=== PATIENT | female | born 1980 | race Caucasian/White ===

== ENCOUNTER → 2017-08-19 | Outpatient (CLI) | payer MEDICAID | LOC: HPND 08:38 | PROVIDERS: ATTEND Obstetrics & Gynecology | DX: O09.523 Supervision of elderly multigravida, third trimester (principal); O09.33 Supervision of pregnancy with insufficient antenatal care, third trimester | CPT/HCPCS: 76811 ==

== ENCOUNTER 2017-10-13 12:12 | Inpatient (IN) ==
[~2017-10-13 12:12] MED LIST: Phenylephrine/NS 1000 MCG/10ML Syringe IV.PUSH ONE
[2017-10-13] MEDS ORDERED: ceFAZolin Inj 2,000 MG in Sodium Chlor 0.9% Inj 80 ML IV.SIG SCH (13:00)
[2017-10-13] MEDS ORDERED: Citric Acid/Sodium Citrate Liq 30 ML UDC PO SCH (13:00)
[2017-10-13 13:24] LABS: Baso # (Auto) 0.1 th/mm3 (0.0-0.2); Baso % (Auto) 0.5 % (0.0-2.0); Eos # (Auto) 0.1 th/mm3 (0.0-0.4); Eos % (Auto) 0.7 % (0.0-4.0); Hematocrit 41.4 % (35.0-46.0); Hemoglobin 13.6 gm/dL (11.6-15.3); Lymph # (Auto) 2.8 th/mm3 (1.0-4.8); Mean Corpuscular HGB Conc 32.8 % (32.0-36.0); Mean Corpuscular Hemoglobin 29.6 pg (27.0-34.0); Mean Corpuscular Volume 90.3 fL (80.0-100.0); Mean Platelet Volume 10.7 fL (7.0-11.0); Mono # (Auto) 0.7 th/mm3 (0.0-0.9); Mono % (Auto) 5.3 % (0.0-8.0); Neut # (Auto) 9.8 th/mm3 (1.8-7.7); Neut % (Auto) 72.5 % (16.0-70.0); Platelet Count 278 th/mm3 (150-450); Red Blood Count 4.58 mil/mm3 (4.00-5.30); Red Cell Distribution Width 13.2 % (11.6-17.2); White Blood Count 13.6 th/mm3 (4.0-11.0)
[2017-10-13 13:28] LABS: Bilirubin,Urine Negative (Negative); Clarity,Urine Clear (Clear); Color,Urine Yellow (Yellw/Straw); Glucose,Urine (UA) Negative (Negative); Leukocyte Esterase,Urine Negative (Negative); Mucus,Urine Few /lpf (Occasional); Nitrite,Urine Negative (Negative); Specific Gravity,Urine 1.017 (1.002-1.035); Squamous Epithelial Cell,Urine 2 /hpf (0-5)
[2017-10-13 13:44] LABS: Barbiturate Screen,Urine Neg (Neg)
--- NOTE | 2017-10-13 13:54 | P.HPOB ---
History of Present Illness Primary Care Physician: UNKNOWN Chief Complaint: scheduled History of Present Illness: 36-year-old at 39 weeks and 2 days by ultrasound presents for scheduled C- section. Denies any loss of fluid, vaginal bleeding, decreased movements. Is having some contractions. During was diagnosed with gestational diabetes. Not on any medications besides vitamins. Otherwise uncomplicated. Previous uncomplicated besides gestational diabetes. First required induction of labor for postdates but went to due to failure of progression. Para: 1 : 2 - Inpatient Certification I certify that the inpatient services were ordered in accordance with Medicare regulations governing the order. This includes certification that hospital inpatient services are reasonable and necessary and in the case of services not specified as inpatient-only under 42 CFR 419.22(n), that they are appropriately provided as inpatient services in accordance to with the 2-midnight benchmark under 43 CFR 412.3(e) Estimated Total Length of Stay (Days): 4 Plans for Post Hospital Care: Home Review of Systems Constitutional: Denies chills, Denies fever(s) Cardiovascular: Denies chest pain Respiratory: Denies shortness of breath Gastrointestinal: Denies abdominal pain, Denies vomiting Genitourinary: Denies painful urination, Denies urinary incontinence Neurologic: Denies headache(s), Denies other visual disturbances PMFSH - Medical / Surgical Hx Neg / Unobtainable Medical Problems Denied: Yes Surgical History: No Previous Surgery - Medical History Medical History: Medical History (Last Updated 10/13/17 @ 13:48 by Yaneli Zeng MD, R1) delivery delivered - Tobacco History Smoking Status: Never smoker - Alcohol History How Often Do You Have a Drink Containing Alcohol: Never - Substance Use History Substance History: No History of Abuse Medications and Allergies Active Medications: Active Medications Citric Acid/Sodium Citrate (Sodium Citrate/Citric Acid Liq) 30 ml PO NURSE TRANSPLANT EVELYNE Stop: 10/17/17 12:59 Cefazolin Sodium 2,000 mg/ (Sodium Chloride) 100 mls @ 200 mls/hr IV.SIG NURSE TRANSPLANT EVELYNE Stop: 10/17/17 12:59 Lactated Ringer's (Lr 1000 Ml Inj) 1,000 mls @ 150 mls/hr IV.CONT .Q6H40M [facility] Allergies Allergy/AdvReac Type Severity Reaction Status Date / Time No Known Allergies Allergy Verified 10/13/17 12:57 Home Medications Medication Instructions Recorded Confirmed Type PNV #[id number] 1 tab PO DAILY 10/13/17 History Exam Vital signs: Vital Signs 10/13/17 12:53 10/13/17 12:55 Temperature 98.0 F Pulse Rate 71 Respiratory Rate 18 Blood Pressure 110/72 Intake & Output 10/12/17 10/13/17 10/13/17 18:59 06:59 18:59 Weight 99.79 kg Narrative: GENERAL: Well-nourished, well-developed patient. SKIN: Warm and dry. HEAD: Normocephalic and atraumatic. EYES: No scleral icterus. No injection or drainage. ENT: No nasal drainage noted. Mucous membranes pink. Airway patent. NECK: Supple, trachea midline. No JVD. CARDIOVASCULAR: Regular rate and rhythm without murmurs, gallops, or rubs. RESPIRATORY: Breath sounds equal bilaterally. No accessory muscle use. BREASTS: Bilateral exam showed no masses , no retractions, no nipple discharge. ABDOMEN/GI: Abdomen soft, non-tender, bowel sounds present, no rebound, no guarding GENITOURINARY: Uterine Contractions: every 5-6 minutes FHT's: Category: 1 Baseline: 135 Reactive: yes Variability: moderate Decels: none EXTREMITIES: No cyanosis or edema. BACK: Nontender without obvious deformity. No CVA tenderness. NEUROLOGICAL: Awake and alert. Motor and sensory grossly within normal limits. Five out of 5 muscle strength in all muscle groups. Normal speech. Results - Labs CBC & Chem 7: 10/13/17 12:40 Labs: Laboratory Results - last 24 hr 10/13/17 10/13/17 10/13/17 12:40 12:40 12:40 WBC 13.6 H RBC 4.58 Hgb 13.6 Hct 41.4 MCV 90.3 MCH 29.6 MCHC 32.8 RDW 13.2 Plt Count 278 MPV 10.7 Neut % (Auto) 72.5 H Lymph % (Auto) 21.0 [place] % (Auto) 5.3 Eos % (Auto) 0.7 Baso % (Auto) 0.5 Neut # (Auto) 9.8 H Lymph # (Auto) 2.8 [place] # (Auto) 0.7 Eos # (Auto) 0.1 Baso # (Auto) 0.1 WBC Differential . Differential Comment Auto diff final Urine Color Yellow Urine Clarity Clear Urine pH 5.0 Ur Specific [place] 1.017 Urine Protein Negative Urine Glucose (UA) Negative Urine Ketones 20 Urine Occult Blood Negative Urine Nitrate Negative Urine Bilirubin Negative Urine Urobilinogen Less than 2 Ur Leukocyte Esterase Negative Urine RBC Less than 1 Urine WBC 1 Ur Squamous Epith Cells 2 Urine Mucus Few H Micro UA Comment Culture not ind Urine Culture Comments Culture not ind Blood Type A Positive Blood Type Recheck Required Caprini VTE Risk Assessment Caprini VTE Risk Assessment: No/Low Risk (score <= 1) Caprini Risk Assessment Model: Point Value = 1 Point Value = 2 Point Value = 3 Point Value = 5 Age 41-60 Minor surgery BMI > 25 kg/m2 Swollen legs Varicose veins or History of unexplained or recurrent spontaneous Oral contraceptives or hormone replacement Sepsis (< 1 month) Serious lung disease, including pneumonia (< 1 month) Abnormal pulmonary function Acute myocardial infarction Congestive heart failure (< 1 month) History of inflammatory bowel disease Medical patient at bed rest Age 61-74 Arthroscopic surgery Major open surgery (> 45 min) Laparoscopic surgery (> 45 min) Malignancy Confined to bed (> 72 hours) Immobilizing plaster cast Central venous access Age >= 75 History of VTE Family history of VTE Factor V Leiden Prothrombin [id number] Lupus anticoagulant Anticardiolipin antibodies Elevated serum homocysteine Heparin-induced thrombocytopenia Other congenital or acquired thrombophilia Stroke (< 1 month) Elective arthroplasty Hip, pelvis, or leg fracture Acute spinal cord injury (< 1 month) Prophylaxis Regimen: Total Risk Factor Score Risk Level Prophylaxis Regimen 0-1 Low Early ambulation 2 Moderate Order ONE of the following: *Sequential Compression Device (SCD) *Heparin 5000 units SQ BID 3-4 Higher Order ONE of the following medications: *Heparin 5000 units SQ TID *Enoxaparin/Lovenox 40 mg SQ daily (WT < 150 kg, CrCl > 30 mL/min) *Enoxaparin/Lovenox 30 mg SQ daily (WT < 150 kg, CrCl > 10-29 mL/min) *Enoxaparin/Lovenox 30 mg SQ BID (WT < 150 kg, CrCl > 30 mL/min) AND/OR *Sequential Compression Device (SCD) 5 or more Highest Order ONE of the following medications: *Heparin 5000 units SQ TID (Preferred with Epidurals) *Enoxaparin/Lovenox 40 mg SQ daily (WT < 150 kg, CrCl > 30 mL/min) *Enoxaparin/Lovenox 30 mg SQ daily (WT < 150 kg, CrCl > 10-29 mL/min) *Enoxaparin/Lovenox 30 mg SQ BID (WT < 150 kg, CrCl > 30 mL/min) AND *Sequential Compression Device (SCD) Assessment and Plan - Diagnosis (1) with 39 completed weeks gestation Code(s): Z3A.39 - 39 weeks gestation of Status: Acute Plan: 36-year-old female at 39 weeks and 2 days presents for scheduled repeat C- section. Not in active labor. -FHT category 1 reassuring contractions 6 min apart -Admit to labor and delivery -Routine orders -Recommend follow-up on gestational diabetes after discharge
[2017-10-13 13:56] LABS: Amphetamine Screen,Urine Neg (Neg); Cannabinoid Screen,Urine Neg (Neg); Cocaine Screen,Urine Neg (Neg)
[2017-10-13 13:57] LABS: Opiate Screen,Urine Neg (Neg)
[2017-10-13 15:09] LABS: Alanine Aminotransferase 140 U/L (10-53); Albumin 2.8 g/dL (3.4-5.0); Anion Gap 13 meq/L (5-15); Aspartate Aminotransferase 67 U/L (15-37); Blood Urea Nitrogen 11 mg/dL (7-18); Calcium 9.1 mg/dL (8.5-10.1); Carbon Dioxide 20.1 meq/L (21.0-32.0); Chloride 105 meq/L (98-107); Glomerular Filtration Rate 70 mL/min (>89); Glucose,Random 82 mg/dL (74-106); Potassium 3.8 meq/L (3.5-5.1); Sodium 138 meq/L (136-145)
[2017-10-13 15:12] LABS: Alkaline Phosphatase 179 U/L (45-117); Total Protein 6.8 g/dL (6.4-8.2)
[2017-10-13] MEDS ORDERED: Morphine Sulfate PF Inj 5 MG/10 ML Ampul ONE (15:32)
[2017-10-13] MEDS ORDERED: Naloxone Inj 0.4 MG/ML Vial IV.PUSH PRN (15:35)
[2017-10-13] MEDS ORDERED: fentaNYL Citrate Inj 100 MCG/2 ML Ampul ONE (16:19)
[2017-10-13] MEDS ORDERED: Acetaminophen 325 MG Tablet PO PRN (17:36)
--- NOTE | 2017-10-13 17:48 | P.OP ---
- Preoperative Diagnosis (1) Previous section complicating , with delivery - Postoperative Diagnosis (1) Previous section complicating (2) Previous section complicating , with delivery Date of procedure: 10/13/17 Procedure: Repeat section low transverse Anesthesia: spinal Surgeon: Ken Kuo MD Estimated blood loss (mL): 500 IV fluids (mL): 1,000 Urine output (mL): 100 Operation and Findings: Patient was taken the operating room and placed in supine position after adequate spinal anesthesia administered. A previous Pfannenstiel incision was excised. The incision carried to the fascia sharply and the fascia incised laterally and reflected off the rectus muscle. The peritoneal cavity entered sharply at that time. The incision extended superior and inferiorly. The bladder blade placed large incision. The visceral peritoneum reflected off the lower uterine segment placed on a bladder blade. A transverse hysterotomy was made extended bluntly bilaterally clear fluid noted. Baby was delivered at 4: 04 PM's female weight 3570 g Apgars 8 8 were no complications delivery delayed cord clamping done. Cord blood obtained. The uterus elevated and the placenta manually extracted. The uterus exteriorized. The cervix dilated and the hysterotomy closed running layer of 0 chromic followed by imbricating layer of same. Hemostasis achieved the uterus is elevated blood suctioned site gutters and the uterus replaced the peritoneal cavity. The ovaries and tubes noted to be normal. The parietal peritoneum closed in a running layer 2-0 Vicryl. muscle reapproximated with stick ties of chromic and Vicryl. And the fascia closed in a running layer of 0 Vicryl. Subcutaneous tissues brought together with 3-0 plain catgut suture and the skin closed with a subcuticular 3- 0 Monocryl suture. Pressure dressing applied. The estimated blood loss was 500 cc sponge and needle count correct 2 and the patient to recovery in stable condition
[2017-10-13] MEDS ORDERED: Oxytocin 30 Units/500ml Premix 30 UNITS/500 ML BAG ONE (17:53)
[2017-10-13] MEDS ORDERED: Oxytocin 30 Units/500ml Premix 30 UNITS/500 ML BAG IV.SIG ONE (18:00)
[2017-10-13] MEDS ORDERED: Oxytocin 30 Units/500ml Premix 30 UNITS/500 ML BAG IV.SIG PRN (22:36)
[2017-10-14 05:53] LABS: Baso % (Auto) 0.1 % (0.0-2.0); Hematocrit 34.3 % (35.0-46.0); Hemoglobin 11.7 gm/dL (11.6-15.3); Lymph % (Auto) 9.5 % (9.0-44.0); Mean Corpuscular HGB Conc 34.1 % (32.0-36.0); Mean Corpuscular Hemoglobin 30.3 pg (27.0-34.0); Mean Corpuscular Volume 88.8 fL (80.0-100.0); Mean Platelet Volume 10.5 fL (7.0-11.0); Mono # (Auto) 1.8 th/mm3 (0.0-0.9); Mono % (Auto) 8.2 % (0.0-8.0); Neut # (Auto) 17.6 th/mm3 (1.8-7.7); Neut % (Auto) 82.2 % (16.0-70.0); Platelet Count 231 th/mm3 (150-450); Red Blood Count 3.87 mil/mm3 (4.00-5.30); Red Cell Distribution Width 12.9 % (11.6-17.2); White Blood Count 21.4 th/mm3 (4.0-11.0)
--- NOTE | 2017-10-14 08:19 | P.PNOB ---
Subjective Post op day: 1 Interval history: Patient is a 36 year-old delivered at 39 weeks and 2 days. Patient is day 1 after . Patient's pain is well-controlled. Patient reports eating and drinking without any nausea or vomiting. Had some vomiting yesterday afternoon that resolved. Patient reports minimal bleeding. Patient has passed not passed gas and no bowel movements. Patient is walking without lower extremity pain or shortness of breath. Patient reports desire for contraception and breast-feeding. Objective Vital Signs/I&O: Vital Signs 10/13/17 12:53 10/13/17 12:55 10/13/17 14:30 Temperature 98.0 F Pulse Rate 71 Respiratory Rate 18 17 Blood Pressure 110/72 10/13/17 16:50 10/13/17 16:58 10/13/17 17:05 Temperature 98.0 F Pulse Rate 19 L 66 Respiratory Rate 18 17 Blood Pressure 96/56 L 99/59 L 10/13/17 17:12 10/13/17 17:17 10/13/17 17:27 Temperature Pulse Rate 71 67 Respiratory Rate 18 17 Blood Pressure 105/57 L 10/13/17 17:35 10/13/17 17:45 10/13/17 17:46 Temperature 98.2 F Pulse Rate 68 Respiratory Rate 18 Blood Pressure 112/66 112/65 10/13/17 18:30 10/13/17 20:00 10/14/17 00:00 Temperature 97.5 F L 97.7 F 98.3 F Pulse Rate 68 74 67 Respiratory Rate 18 16 18 Blood Pressure 128/69 127/65 102/63 10/14/17 04:00 Temperature 98.1 F Pulse Rate 64 Respiratory Rate 18 Blood Pressure 116/68 Intake & Output 10/13/17 10/14/17 10/14/17 18:59 06:59 18:59 Intake Total 100 / 100 Balance 100 / 100 Weight 99.79 kg Intake: IV 100 / 100 Ofirmev Inj 1,000 mg In 100 ml 100 / 100 @ 400 mls/hr IV.SIG Q8H [facility] Rx# :[id number] Result Diagrams: 10/14/17 04:56 10/13/17 12:40 Objective Remarks: GENERAL: Well-nourished, well-developed patient. CARDIOVASCULAR: Regular rate and rhythm without murmurs, gallops, or rubs. RESPIRATORY: Breath sounds equal bilaterally. No accessory muscle use. ABDOMEN/GI: Abdomen soft, non-tender, bowel sounds present. Incision: Clean, dry bandage Fundus: Firm, non-tender at umbilicus. GENITOURINARY: Light to moderate bleeding. EXTREMITIES: No cyanosis or edema, non-tender, without signs of DVT. 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 [facility] Stop: 10/17/17 12:59 Last Admin: 10/13/17 15:26 Dose: 30 ml Diphenhydramine HCl (Benadryl) 50 mg PO Q6H PRN PRN Reason: MILD TO MODERATE ITCHING Stop: 10/14/17 15:34 Diphenhydramine HCl (Benadryl Inj) 25 mg IV.PUSH Q6H PRN PRN Reason: MILD TO MODERATE ITCHING Stop: 10/14/17 15:34 Diphtheria/Pertussis/Tetanus Vacc (Boostrix Vaccine Inj) 0.5 ml IM .ONCE ONE Stop: 10/14/17 16:01 Oxytocin (Pitocin 30 Units/Ns 500 Ml Premix) 30 units in 500 mls @ 100 mls/hr IV.SIG PRN PRN PRN Reason: Heavy bleeding Stop: 10/14/17 22:35 Cefazolin Sodium 2,000 mg/ (Sodium Chloride) 100 mls @ 200 mls/hr IV.SIG Q8H EVELYNE Stop: 10/14/17 08:29 Last Admin: 10/13/17 23:52 Dose: 200 mls/hr Lactated Ringer's (Lr 1000 Ml Inj) 1,000 mls @ 100 mls/hr IV.CONT .Q10H [facility] Stop: 10/14/17 18:35 Ibuprofen (Motrin) 600 mg PO Q6H PRN PRN Reason: cramping Ketorolac Tromethamine (Toradol Inj) 60 mg IM ONCE PRN PRN Reason: SEE LABEL COMMENTS Stop: 10/14/17 17:35 Ketorolac Tromethamine (Toradol Inj) 30 mg IM Q6H PRN PRN Reason: SEE LABEL COMMENTS Stop: 10/15/17 17:35 Measles/Mumps/Rubella Vaccine Live (M-M-R Ii Vaccine Inj) 0.5 ml SQ .ONCE ONE Stop: 10/14/17 16:01 Miscellaneous Information ([facility] [place] [facility] Information) 1 each OTHER UNSCH PRN PRN Reason: SEE LABEL COMMENTS Stop: 10/14/17 15:34 Miscellaneous Information ([facility] [place] [facility] Information) 1 each OTHER UNSCH PRN PRN Reason: SEE LABEL COMMENTS Stop: 10/14/17 15:34 Naloxone HCl (Narcan Inj) 0.4 mg IV.PUSH UNSCH PRN PRN Reason: SEE LABEL COMMENTS Stop: 10/14/17 15:34 Ondansetron HCl (Zofran Inj) 4 mg IV.PUSH Q6H PRN PRN Reason: NAUSEA OR VOMITING Last Admin: 10/13/17 20:40 Dose: 4 mg Oxycodone/Acetaminophen (Percocet 5/325 Mg) 2 tab PO Q4H PRN PRN Reason: PAIN SCALE 6 TO 10 Oxycodone/Acetaminophen (Percocet 5/325 Mg) 1 tab PO Q4H PRN PRN Reason: PAIN SCALE 3 TO 5 Sodium Chloride (Ns Flush) 2 ml IV.FLUSH UNSCH PRN PRN Reason: FLUSH AFTER USING IV ACCESS Sodium Chloride (Ns Flush) 2 ml IV.FLUSH BID EVELYNE Assessment and Plan - Diagnosis (1) delivery delivered Code(s): O82 - Encounter for delivery without indication Status: Acute Plan: Patient is a 36 year-old delivered at 39 weeks and 2 days. Patient is day 1 after . Patient was counseled to do 6 weeks of pelvic rest. Patient was counseled to follow up in 6 weeks. Not interested in contraception at this time. --AF VSS --Continue routine care --Motrin and Percocet when necessary for pain --Encourage OOB --Pelvic rest for 6 weeks will need follow-up appointment at that time. --Anticipate discharge in two days.
[2017-10-14] MEDS ORDERED: ceFAZolin Inj 2,000 MG in Sodium Chlor 0.9% Inj 80 ML IV.SIG SCH ×3 (10:00)
[2017-10-14] MEDS: Ibuprofen 600 MG Tablet PO PRN ×2 (15:21→21:32)
[2017-10-14] MEDS ORDERED: Diphtheria/Tetanus/Pertussis Vaccine Inj 0.5 ML Syringe IM ONE (16:00)
[2017-10-14] MEDS ORDERED: Measles/Mumps/Rubella Vaccine Inj 0.5 ML Vial SQ ONE (16:00)
[2017-10-14 17:46] VITALS: O2SAT 96
--- NOTE | 2017-10-15 08:23 | P.PNOB ---
Subjective Post op day: 2 Interval history: Patient is a 36 year-old delivered at 39 weeks and 2 days. Patient is day 1 after . Patient's pain is well-controlled. Patient reports eating and drinking without any nausea or vomiting. Had some vomiting yesterday afternoon that resolved. Patient reports minimal bleeding. Patient has passed not passed gas and no bowel movements. Patient is walking without lower extremity pain or shortness of breath. Patient reports breast-feeding, and not interested in contraception. Objective Vital Signs/I&O: Vital Signs 10/14/17 11:39 10/14/17 16:00 10/14/17 20:00 Temperature 98.4 F 97.7 F 98.1 F Pulse Rate 72 78 65 Respiratory Rate 18 18 20 Blood Pressure 111/67 100/66 95/63 L Pulse Oximetry 96 Intake & Output 10/14/17 10/15/17 10/15/17 18:59 06:59 18:59 Intake Total 100 / 100 Balance 100 / 100 Intake: IV 100 / 100 Ofirmev Inj 1,000 mg In 100 ml 100 / 100 @ 400 mls/hr IV.SIG Q8H [facility] Rx# :[id number] Result Diagrams: 10/14/17 04:56 10/13/17 12:40 Objective Remarks: GENERAL: Well-nourished, well-developed patient. CARDIOVASCULAR: Regular rate and rhythm without murmurs, gallops, or rubs. RESPIRATORY: Breath sounds equal bilaterally. No accessory muscle use. ABDOMEN/GI: Abdomen soft, non-tender, bowel sounds present. Incision: Clean, dry and intact. Fundus: Firm, non-tender at umbilicus. GENITOURINARY: Light to moderate bleeding. EXTREMITIES: No cyanosis or edema, non-tender, without signs of DVT. 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[facility] Stop: 10/17/17 12:59 Last Admin: 10/13/17 15:26 Dose: 30 ml Ibuprofen (Motrin) 600 mg PO Q6H PRN PRN Reason: cramping Last Admin: 10/14/17 21:32 Dose: 600 mg Ketorolac Tromethamine (Toradol Inj) 30 mg IM Q6H PRN PRN Reason: SEE LABEL COMMENTS Stop: 10/15/17 17:35 Ondansetron HCl (Zofran Inj) 4 mg IV.PUSH Q6H PRN PRN Reason: NAUSEA OR VOMITING Last Admin: 10/13/17 20:40 Dose: 4 mg Oxycodone/Acetaminophen (Percocet 5/325 Mg) 2 tab PO Q4H PRN PRN Reason: PAIN SCALE 6 TO 10 Oxycodone/Acetaminophen (Percocet 5/325 Mg) 1 tab PO Q4H PRN PRN Reason: PAIN SCALE 3 TO 5 Last Admin: 10/14/17 21:32 Dose: 1 tab Sodium Chloride (Ns Flush) 2 ml IV.FLUSH UNSCH PRN PRN Reason: FLUSH AFTER USING IV ACCESS Sodium Chloride (Ns Flush) 2 ml IV.FLUSH BID EVELYNE Assessment and Plan - Diagnosis (1) delivery delivered Code(s): O82 - Encounter for delivery without indication Status: Acute Plan: Patient is a 36 year-old delivered at 39 weeks and 2 days. Patient is day 1 after . Patient was counseled to do 6 weeks of pelvic rest. Patient was counseled to follow up in 6 weeks. Not interested in contraception at this time. --Continue routine care --Motrin and Percocet when necessary for pain --Encourage OOB --Pelvic rest for 6 weeks will need follow-up appointment at that time. --Discharge today
[2017-10-15 09:36] VITALS: BP 130/81; PULSE 78; RESP 18; TEMP 98.3
[2017-10-15] MEDS: Ibuprofen 600 MG Tablet PO PRN (12:06)
== END 2017-10-15 14:12 | disposition home or self-care (01) ==
LOC: H2E 12:12 → H1EA 18:02
PROVIDERS: ADMIT Obstetrics & Gynecology Maternal & Fetal Medicine; ATTEND Obstetrics & Gynecology Maternal & Fetal Medicine